=== PATIENT | female | born 1950 | race Two or more races ===

== ENCOUNTER 2017-03-03 05:48 | Day surgery (SDC) | payer MEDICARE, OTHER ==
--- NOTE | 2017-02-27 09:26 | Pre-Procedure Note/Attestation ---
Pre-Procedure Note/Attestation Complete Prior to Procedure Planned Procedure: right Procedure Narrative: 1. CATARACT EXTRACTION WITH PHACO AND PC IOL IMPLANTATION, RIGHT EYE. Indications for Procedure Pre-Operative Diagnosis: 1. CATARACT ,RIGHT EYE. Attestation I attest that I discussed the nature of the procedure; its benefits; risks and complications; and alternatives (and the risks and benefits of such alternatives ), prior to the procedure, with the patient (or the patient's legal compliance representative dealer). I attest that, if there was a reasonable possibility of needing a blood transfusion, the patient (or the patient's legal compliance representative dealer) was given the [facility] standardized written summary, pursuant to the [place] Blood Safety Act ([place] Health and Safety Code # 1645, as amended). I attest that I re-evaluated the patient just prior to the surgery and that there has been no change in the patient's H&P, except as documented below: TANYA RAHMAN Feb 27, 2017 09:26
[2017-03-03] VITALS (10 sets, daily range): BP systolic 128–147; BP diastolic 67–80
[~2017-03-03] VITALS: Ht 165.1 cm; Wt 78.0 kg
[~2017-03-03 05:48] MED LIST: Akten 3.5% 1ml Btl ONE; Diclofenac Sod 0.1% Op Soln ONE; Phenylephrine 10% Opth Soln 5ml ONE; Tropicamide 1% Opth Soln ONE; Vigamox Opth Soln ONE
[2017-03-03] MEDS ORDERED: acetaZOLAMIDE 125mg tab ORAL ONE (06:00)
[2017-03-03] MEDS: Akten 3.5% 1ml Btl RIGHT EYE SCH ×3 (06:15→06:41)
[2017-03-03] MEDS: Diclofenac Sod 0.1% Op Soln RIGHT EYE SCH ×3 (06:15→06:42)
[2017-03-03] MEDS: Phenylephrine 10% Opth Soln 5ml RIGHT EYE SCH ×3 (06:16→06:42)
[2017-03-03] MEDS: Tropicamide 1% Opth Soln RIGHT EYE SCH ×3 (06:16→06:42)
[2017-03-03] MEDS: Vigamox Opth Soln RIGHT EYE SCH ×3 (06:16→06:42)
[2017-03-03] MEDS ORDERED: METFORMIN HCL500 M1 ORAL (06:34)
[2017-03-03] MEDS ORDERED: LEXAPRO20 MG ORAL (06:34)
[2017-03-03] MEDS ORDERED: SYNTHROID100 MCG ORAL (06:34)
[2017-03-03] MEDS ORDERED: TOPROL XL50 MG ORAL (06:34)
[2017-03-03] MEDS ORDERED: ASPIRIN81 MG ORAL (06:34)
[2017-03-03] MEDS ORDERED: LIPITOR40 MG ORAL (06:34)
[2017-03-03] MEDS ORDERED: Sterile Water Irrig 1000ml IRRIG ONE (07:00)
[2017-03-03] MEDS ORDERED: NS Irrig 1000ml ONE (07:00)
[2017-03-03] MEDS ORDERED: LR 1000ml ONE (07:00)
[2017-03-03] MEDS ORDERED: Midazolam 2mg/2ml Inj ONE (07:00)
[2017-03-03] MEDS ORDERED: BSS 500ml btl ONE (07:02)
[2017-03-03] MEDS ORDERED: Tetracaine 0.5% Opth Soln ONE (07:03)
[2017-03-03] MEDS ORDERED: Lidocaine 1% MPF 10mg/ml 5ml ONE (07:03)
[2017-03-03] MEDS ORDERED: Dexamethasone 4mg/ml vial ONE (07:03)
[2017-03-03] MEDS ORDERED: Povidone-Iodine 5% opth solution ONE (07:04)
[2017-03-03] MEDS ORDERED: EPINEPHrine 1mg/1ml Amp ONE (07:04)
[2017-03-03] MEDS ORDERED: Carbachol 0.01% Op Soln 1.5ml vial ONE (07:04)
[2017-03-03] MEDS ORDERED: Sodium Hyaluronate 10 mg/ml 0.85ml ONE (07:05)
[2017-03-03] MEDS ORDERED: BSS 15ml BTL ONE (07:05)
[2017-03-03] MEDS ORDERED: LR 1000ml 1,000 ML IVLG SCH (07:39)
--- NOTE | 2017-03-03 07:43 | Anethesia Preoperative Eval ---
Anesthesia Pre-op PMH/ROS General Date of Evaluation: Mar 03, 2017 Time of Evaluation: 07:10 Anesthesiologist: Damien ASA Score: ASA 3 Mallampati Score Class I : Soft palate, uvula, fauces, pillars visible Class II: Soft palate, uvula, fauces visible Class III: Soft palate, base of uvula visible Class IV: Only hard plate visible Mallampati Classification: Class II Surgeon: Stella Diagnosis: Cataract right eye Surgical Procedure: Extraction of cataract; with IOL Family History: no anesthesia problems Allergies: Coded Allergies: No Known Allergies (Unverified , 02/27/17) Medications: see eMAR Past Medical History Cardiovascular: Reports: HTN, Denies: CAD, [place], valve dz, arrhythmia, other Pulmonary: Denies: asthma, COPD, STEFAN, other Gastrointestinal/Genitourinary: Reports: GERD, Denies: CRI, ESRD, other Neurologic/Psychiatric: Denies: dementia, CVA, depression/anxiety, TIA, other Endocrine: Reports: DM, hypothyroidism, Denies: steroids, other HEENT: Reports: cataract (R), Denies: cataract (L), glaucoma, ALUTIIQ (L), ALUTIIQ (R), other Hematology/Immune: Reports: anemia, Denies: DVT, bleeding disorder, other Musculoskeletal/Integumentary: Denies: OA, RA, DJD, DDD, edema, other PMH Narrative: HTN, DM, GERD, anemia, hypothyroid PSxH Narrative: FRANCISCO JAVIER Anesthesia Pre-op Phys. Exam Physician Exam Last Vital Signs Date Time Temp Pulse Resp B/P (MAP) Pulse Ox O2 Delivery O2 Flow Rate FiO2 03/03/17 06:34 97.7 56 20 136/71 96 Room Air Constitutional: NAD Neurologic: CN 2-12 intact Cardiovascular: RRR, no M/R/G Respiratory: CTA Gastrointestinal: S/NT/ND Airway Exam Mallampati Score: Class II MO: full ROM: full Teeth: intact Anesthesia Pre-op A/P Studies Pre-op Studies: EKG - SR, abnormal TW in anterior and lateral leads Risk Assessment & Plan Assessment: Class 3 female for cataract extraction Plan: MAC Status Change Before Surgery: No Pre-Antibiotics Drug: None NABIL DAN M.D. Mar 03, 2017 07:43
--- NOTE | 2017-03-03 07:44 | Immediate Post-Op Evaluation ---
Immediate Post-Op Evalulation Immediate Post-Op Evalulation Procedure: Extraction of cataract with IOL right eye Date of Evaluation: Mar 03, 2017 Time of Evaluation: 08:11 IV Fluids: 700 Blood Pressure Systolic: 147 Blood Pressure Diastolic: 71 Pulse Rate: 58 Respiratory Rate: 23 O2 Sat by Pulse Oximetry: 97 Temperature (Fahrenheit): 97.6 Pain Score (1-10): 0 Nausea: No Vomiting: No Complications No complication Patient Status: awake, patent, none Hydration Status: adequate Drug: None NABIL DAN M.D. Mar 03, 2017 07:44
[2017-03-03] MEDS ORDERED: fentaNYL 100 mcg/2 mL IV PRN (07:45)
[2017-03-03] MEDS ORDERED: LR 1000ml 1,000 ML IV SCH (07:45)
--- NOTE | 2017-03-03 08:06 | 48 Hour Post Anesthesia Eval ---
Post Anesthesia Evaluation Procedure: Extraction of cataract with IOL right eye Date of Evaluation: Mar 03, 2017 Time of Evaluation: 08:30 Blood Pressure Systolic: 144 0: 74 Pulse Rate: 58 Respiratory Rate: 20 O2 Sat by Pulse Oximetry: 97 Airway: patent Nausea: No Vomiting: No Pain Intensity: 0 Cardiopulmonary Status: Stable Follow-up Care/Observations: As per surgery Post-Anesthesia Complications: No anesthetic complication Follow-up care needed: N/A NABIL DAN M.D. Mar 03, 2017 08:06
--- NOTE | 2017-03-03 08:06 | Discharge Summary ---
Discharge Summary Discharge Summary Discharge Summary DATE OF ADMISSION:03/03/2017 DATE OF DISCHARGE: REASON FOR HOSPITALIZATION: Cataract right eye SURGERY PERFORMED: Cataract extraction with phaco and PC IOL implantation, right eye CONDITION IN THE HOSPITAL:The patient tolerated the surgery without complications. DISCHARGE CONDITION: The patient was stable at discharge. DISCHARGE MEDICATIONS: 1. Vigamox eye drops one drop q.i.d, right eye 2. Prednisolone one drop q.i.d, right eye 3. Ilevro one drop qd, right eye POSTOPERATIVE ORDERS: The patient has to rest at home. No bending, No lifting, No watching Television tonight. POSTOPERATIVE FOLLOW UP: The patient will be followed in my office tomorrow morning at 7 o'clock. TANYA RAHMAN Mar 03, 2017 08:06
--- NOTE | 2017-03-03 08:13 | Brief Operative Note ---
Immediate Post Operative Note Operative Note Chief Complaint: Blurry vision, difficulty driving and reading, right eye Pre-op Diagnosis: 1. CATARACT ,RIGHT EYE. Procedure: Cataract extraction with phaco and PC IOl implantation, right eye Post-op Diagnosis: same as pre-op Surgeon: Tanya Douglas MD. Rn Security: None Additional Surgeons: None Anesthesiologist: Dr. Calloway Anesthesia: MAC Specimen: none Complications: none Condition: stable Fluids: Lr 500 ml Estimated Blood Loss: none Drains: none Implant(s) used?: Yes - Monofocal PC IOL implantedin the right eye without complication TANYA DOUGLAS Mar 03, 2017 08:13
--- NOTE | 2017-03-04 06:30 | Operative Note - Dictated ---
DATE OF OPERATION: 03/03/2017 FACILITY: [facility]. SURGEON: Jono Douglas M.D. COLD PRESS OPERATOR: None. ANESTHESIOLOGIST: Fracisco Quezada M.D. ANESTHESIA: Monitored anesthesia care (MAC) x2. PREOPERATIVE DIAGNOSIS: Cataract, right eye. POSTOPERATIVE DIAGNOSIS: Cataract, right eye. SURGERY PERFORMED: Cataract extraction with phacoemulsification and posterior chamber intraocular lens implantation in the right eye. INDICATIONS FOR SURGERY: The patient is a 66-year-old lady with history of diabetes mellitus, hypertension, hypercholesterolemia, and hyperthyroidism. She is taking medications including levothyroxine, Lipitor, Lexapro, metformin, Diovan, and aspirin. She is complaining of blurred vision in the right eye. On examination of the right eye, the cornea is clear. Anterior chamber is clean and quiet. Pupillary reflex is normal. There is no RAPD. There is 3+ nuclear sclerosis and 2+ cortical cataract. Funduscopy shows normal optic disc, normal macula, and periphery retina is within normal limits. To improve her vision in the right eye, the cataract has to be removed and posterior chamber intraocular lens has to be implanted. INFORMED CONSENT: The nature of the surgery, risks, benefits, alternatives, and potential complications were explained all in detail to the patient. The potential complications including, but not limited to bleeding, infection, posterior capsular rupture, lens subluxation, flat anterior chamber, iris prolapse, uveitis, corneal edema, macular edema, endophthalmitis, retinal detachment, loss of vision, and even loss of the eye were all explained in detail to the patient. The patient voiced understanding and accepted all the complications. The alternatives including accommodating lens, multifocal lens, toric lens, and conventional cataract surgery with limbal relaxing incision (LRI) for treatment of astigmatism were all explained in detail to the patient. She voiced understanding. The patient elected to have conventional cataract surgery in the right eye. Then, she signed the consent form, which is in the chart. DESCRIPTION OF SURGERY AND FINDINGS: Following that, the patient was taken to the operation room in stable condition. Lidocaine gel Akten 3.5% was applied to the conjunctiva of the right eye. IV sedation was given by the anesthesiologist, Dr. Quezada. After adequate anesthesia and sedation had been achieved, the right eye was prepped and draped in the usual sterile fashion for intraocular surgery. Following that, a speculum was placed in the right eye. Following that, using a Super Sharp knife, a clear corneal side port was created. Following that, a 1% lidocaine without preservative (MPF) was injected into the anterior chamber. Following that, viscoelastic agent Healon was injected into the anterior chamber. Following that, a clear corneal temporal keratotomy was performed with 2.8 mm keratome. Following that, viscoelastic agent was injected into the anterior chamber again. Following that, an anterior capsulotomy was performed in the fashion of capsulorrhexis beautifully. Following that, the viscoelastic agent was removed from the anterior segment. Following that, using balanced salt solution, hydrodissection and hydrodelineation were performed and then nucleus was freed. Following that, the viscoelastic agent was injected into the anterior chamber to protect the endothelium of the cornea. Following that, using the phacoemulsification machine in the fashion of horizontal chop, the nucleus was removed in toto. Following that, the cortical material was removed from the capsular bag using the irrigation aspiration unit. Following that, the capsular bag was polished. Following that, the capsular bag was filled with viscoelastic agent, Healon. Following that, +24.5 diopter [id number] folded PCIOL was injected into the capsular bag. The serial number of the lens is [id number]. Using a Sinskey hook, the lens was manipulated and put in the proper position. Following that, the viscoelastic agent was removed from the anterior and posterior parts of the lens. Following that, the anterior chamber was filled with balanced salt solution and the wound was hydrated with balanced salt solution. Following that, the wound was checked for leakage, there was no leakage. Vigamox eye drops were applied to the conjunctiva of the right eye. The patient tolerated the surgery without complications. At the end of the surgery, the eye was patched with a clear sterile fenestrated shield. Following that, the patient was transferred to the recovery room. In the recovery room, 125 mg Diamox was given by mouth. Postoperative orders and directions were given to the patient. The patient will be discharged home upon stabilization. The patient will be followed in my office tomorrow morning after 9 o'clock. Jono Douglas M.D. DR: LUCIO JOB#: [id number] CC:
== END 2017-03-03 09:20 | disposition home or self-care (01) ==
LOC: SUR 05:48
DX: H25.11 Age-related nuclear cataract, right eye (principal); H25.011 Cortical age-related cataract, right eye; E11.9 Type 2 diabetes mellitus without complications; I10 Essential (primary) hypertension; E03.9 Hypothyroidism, unspecified; F32.9 Major depressive disorder, single episode, unspecified; K21.9 Gastro-esophageal reflux disease without esophagitis; D64.9 Anemia, unspecified; E78.5 Hyperlipidemia, unspecified
CPT/HCPCS: 66984; 82962; J0171; J1100; J2250; J7120; V2632; 94003; 94150